=== PATIENT | male | born 1970 | race African-American/Black ===

== ENCOUNTER 2019-06-03 21:22 | Emergency (ER) | payer OTHER ==
[~2019-06-03] VITALS: Ht 182.9 cm; Wt 75.0 kg
[2019-06-03] MEDS ORDERED: ACETAMINOPHEN 650MG/20.3ML UDC PO ONE (22:15)
[2019-06-03 23:48] VITALS: BP 139/91
== END 2019-06-04 | disposition home or self-care (01) ==
LOC: ER 21:22
DX: M54.5 Low back pain (principal); G89.29 Other chronic pain; Z98.1 Arthrodesis status; V43.52XA Car driver injured in collision with other type car in traffic accident, initial encounter; Y93.89 Activity, other specified; Y92.488 Other paved roadways as the place of occurrence of the external cause
CPT/HCPCS: 99283